=== PATIENT | female | born 1985 | race African-American/Black ===

== ENCOUNTER 2022-07-06 13:38 | Emergency (ER) | payer SELFPAY ==
[~2022-07-06] VITALS: Ht 162.6 cm; Wt 72.0 kg
[2022-07-06 13:55] VITALS: BP 129/84
[2022-07-06] MEDS ORDERED: NAPR-681 PO (17:32)
== END 2022-07-06 17:50 | disposition home or self-care (01) ==
LOC: ER 13:38
DX: M54.50 Low back pain, unspecified (principal); M79.644 Pain in right finger(s); T59.811A Toxic effect of smoke, accidental (unintentional), initial encounter; Y92.89 Other specified places as the place of occurrence of the external cause
CPT/HCPCS: 73140; 99283